=== PATIENT | male | born 1960 | race Caucasian/White ===

== ENCOUNTER → 2023-01-26 | Day surgery (SDC) | payer BC ==
[2023-01-24 14:12] VITALS: BMI 28.5
[~2023-01-26] MED LIST: LACTATED RINGERS 1,000 ML IV ONE; LACTATED RINGERS 1,000 ML IV SCH; LIDOCAINE 2% INJ 20 MG/ML (2 ML VIAL) ONE; PROPOFOL 10 MG/ML 20 ML VIAL IV ONE; SODIUM CHLORIDE 0.9% 500 ML 500 ML IV ONE
[2023-01-26 10:09] VITALS: TEMP 97.4
--- NOTE | 2023-01-26 11:48 | P.PCN ---
Date of Procedure: 01/26/23 Procedure(s) Performed: BRIEF HISTORY: Patient is a 62-year-old pleasant white male scheduled for an elective colonoscopy as a part of screening for colon cancer and family history of colon cancer. His mother and maternal grandmother both were diagnosed with colon cancer in his 60s. PROCEDURE PERFORMED: Colonoscopy with biopsy. PREOPERATIVE DIAGNOSIS: Screening for colon cancer and family history of colon cancer. IV sedation per Anesthesia. PROCEDURE: After informed consent was obtained, the patient, was brought into the endoscopy unit. IV sedation was administered by Anesthesia under continuous monitoring. Digital rectal examination was normal. Initially the Olympus CF-160 flexible video colonoscope was then inserted in the rectum, gradually advanced into the cecum without any difficulty. Careful examination was performed as the scope was gradually being withdrawn. Ileocecal valve and the appendiceal orifice were visualized and appeared normal. Prep was excellent. Mucosa of the cecum, ascending colon, transverse colon, descending colon, appeared normal. The sigmoid: There was a 4 mm polyp removed by cold biopsy. In the rectum there was another 3 mm polyp removed by cold biopsy. Scattered left sided diverticulosis seen. Rest of the sigmoid colon, and rectum appeared normal. Retroflexion was performed in the rectum and no lesions were seen. The patient tolerated the procedure well. IMPRESSION: 3 mm rectal polyp status post cold biopsy 4 mm sigmoid: Polyp status post cold biopsy Scattered sigmoid diverticula RECOMMENDATIONS: Findings of this examination were discussed with the patient well as his family. He was advised to follow with the biopsy results. Recomme nd repeat screening colonoscopy in 5 years because of the family history of colon cancer
[2023-01-26 12:09] VITALS: BP 143/81; PULSE 80; RESP 20
== END ==
LOC: ORWHC2ENDO 09:45
PROVIDERS: ATTEND Internal Medicine Gastroenterology
DX: Z12.11 Encounter for screening for malignant neoplasm of colon (principal); K62.1 Rectal polyp; K57.30 Diverticulosis of large intestine without perforation or abscess without bleeding; K63.5 Polyp of colon; I10 Essential (primary) hypertension; Z80.0 Family history of malignant neoplasm of digestive organs; Z79.899 Other long term (current) drug therapy
CPT/HCPCS: 88305; 45380; J2704; J2001

== ENCOUNTER → 2023-08-09 | Outpatient (CLI) | payer BC ==
--- NOTE | 2023-08-09 16:28 | XR ---
EXAMINATION TYPE: XR lumbosacral spine 5 views DATE OF EXAM: 08/09/2023 Comparison: None Clinical History: 63-year-old male M54.40 Lumbago with sciatica Findings: Degenerative dextroconvex curvature of the lumbar spine. Severe disc/endplate degenerative change tow ards the left at L4-L5. Bridging right lateral endplate spondylosis thoracolumbar junction and upper lumbar spine. Moderate to severe multilevel degenerative disc disease is present. [facility] in the lower t horacic spine. Severe hypertrophic facet arthropathy throughout. Degenerative grade 1 retrolisthesis L2-L3 and L3-L4. Vertebral body heights are preserved. Impression: 1. Moderate to severe degenerative disc disease throughout. 2. Severe hypertrophic facet arthropathy especially mid to lower lumbar spine. Degenerative grade 1 r etrolisthesis L2-L3 and L3-L4. 3. DISH in the lower thoracic and upper lumbar spine.
== END | disposition home or self-care (01) ==
LOC: RADXRMAIN 10:58
PROVIDERS: ATTEND Family Medicine
DX: M43.16 Spondylolisthesis, lumbar region (principal); M47.27 Other spondylosis with radiculopathy, lumbosacral region; M51.27 Other intervertebral disc displacement, lumbosacral region; M48.15 Ankylosing hyperostosis [Forestier], thoracolumbar region
CPT/HCPCS: 72110

== ENCOUNTER → 2024-02-16 | Outpatient (CLI) | payer BC | END | disposition home or self-care (01) | LOC: LABWHC1 10:06 | PROVIDERS: ATTEND Urology | DX: C61 Malignant neoplasm of prostate (principal) | CPT/HCPCS: 36415; 84153 ==

== ENCOUNTER → 2024-09-02 | Outpatient (CLI) | payer BC | END | disposition home or self-care (01) | LOC: LABWHC1 07:56 | PROVIDERS: ATTEND Urology | DX: C61 Malignant neoplasm of prostate (principal) | CPT/HCPCS: 36415; 84153 ==

== ENCOUNTER → 2024-12-16 | Outpatient (CLI) | payer BC ==
[2024-12-16 11:46] LABS: Basophils # (A) 0.03 X 10*3/uL (0.00-0.10); Basophils % (A) 0.6 %; Eosinophils # (A) 0.23 X 10*3/uL (0.04-0.35); Eosinophils % (A) 4.7 %; HCT 43.9 % (39.6-50.0); HGB 15.0 g/dL (13.0-17.0); Immature Grans, Automated 0.40 %; Lymphocytes # (A) 1.52 X 10*3/uL (0.90-5.00); Lymphocytes % (A) 31.3 %; MCH 31.2 pg (27.0-32.0); MCHC 34.2 g/dL (32.0-37.0); MCV 91.3 FL (80.0-97.0); Monocytes # (A) 0.57 X 10*3/uL (0.20-1.00); Monocytes % (A) 11.7 %; NRBC Per 100 WBC 0 X 10*3/uL (0.00-0.01); Neutrophils # (A) 2.49 X 10*3/uL (1.80-7.70); Neutrophils % (A) 51.3 %; Platelet Count 197 X 10*3/uL (140-440); RBC 4.81 X 10*6/uL (4.40-5.60); RDW 12.4 % (11.5-14.5); WBC 4.86 X 10*3/uL (4.50-10.00)
[2024-12-16 11:56] LABS: Anion Gap 13.90 mmol/L (4.00-12.00); BUN/Creat Ratio 10.62 Ratio (12.00-20.00); Blood Urea Nitrogen 8.5 mg/dL (9.0-27.0); Calcium 9.3 mg/dL (8.7-10.3); Carbon Dioxide 23.1 mmol/L (21.6-31.8); Chloride 104 mmol/L (96-109); Glucose 92 mg/dL (70-110); Potassium 4.1 mmol/L (3.5-5.5); Sodium 141 mmol/L (135-145)
== END | disposition home or self-care (01) ==
LOC: LABPAT 07:17
PROVIDERS: ATTEND Urology
DX: Z01.812 Encounter for preprocedural laboratory examination (principal); C61 Malignant neoplasm of prostate
CPT/HCPCS: 80048; 85025

== ENCOUNTER 2024-12-25 09:51 | Day surgery (SDC) | payer BC ==
[2024-12-22 13:56] VITALS: BMI 29.8
--- NOTE | 2024-12-22 17:37 | P.GSHP ---
History of Present Illness H&P Date: 12/22/24 Chief Complaint: Prostate cancer The patient is a 64-year-old white male diagnosed with prostate cancer in May 2023. His PSA level at that time was 5.96. 2 of 12 biopsies showed evidence of prostate cancer (Shikha score 3+4). He opted for active surveillance. Repeat biopsies in May 2024 showed evidence of Shikha 7 adenocarcinoma in 3 of 12 biopsies, with 1 showing [place] 4+3. He was advised to consider treatment but has chosen to continue active surveillance. Recent prostate MRI shows a PI-RADS 3 lesion within the right peripheral zone at the apex. He now comes for MRI fusion biopsies. - Cardiovascular Cardiovascular: Reports high blood pressure Past Medical History Past Medical History: Hypertension Additional Past Medical History / Comment(s): SEASONAL ALLERGIES. ELEVATED PSA History of Any Multi-Drug Resistant Organisms: None Reported Additional Past Surgical History / Comment(s): COLONOSCOPY. TENDON CLIPPED IN ABD R/T GROIN PAIN AND IMPOTENCE (SPOUSE NOT SURE OF NAME). HEMORRHOIDECTOMY Past Anesthesia/Blood Transfusion Reactions: No Reported Reaction Smoking Status: Never smoker - Past Family History Mother Family Medical History: Cancer Additional Family Medical History / Comment(s): COLON Medications and Allergies Home Medications Medication Instructions Recorded Confirmed Type Fexofenadine HCl [Harriett Allergy] 180 mg PO DIRECTED PRN 01/24/23 12/22/24 History Ibuprofen [Motrin Ib] 400 - 600 mg PO DAILY PRN 01/24/23 12/22/24 History amLODIPine [Norvasc] 10 mg PO DAILY 01/24/23 12/22/24 History lisinopriL [Zestril] 10 mg PO DAILY 01/24/23 12/22/24 History Allergies Allergy/AdvReac Type Severity Reaction Status Date / Time No Known Allergies Allergy Verified 12/22/24 13:50 Surgical - Exam - General well developed, well nourished, no distress - Respiratory normal respiratory effort - Genitourinary normal penis with no external lesions, testicles non-tender - Rectum Rectum: normal sphincter tone, no masses, other (prostate moderately enlarged and smooth) - Psychiatric oriented to time, oriented to person, oriented to place, speech is normal, memory intact Assessment and Plan (1) Malignant neoplasm of prostate Status: Acute Code(s): C61 - MALIGNANT NEOPLASM OF PROSTATE SNOMED Code(s): 958073605 Plan: The patient will undergo MRI-Ultrasound fusion transrectal biopsies of the prostate. The procedure has been reviewed in detail with the patient. He has been made aware of potential risks, which include anesthesia, bleeding, and infection. He is also aware that a negative biopsy does not completely rule out prostate cancer.
[2024-12-25 11:09] VITALS: TEMP 98.9
[2024-12-25] MEDS: IV FLUID CONTINUATION 1,000 ML IV ONE (11:16)
[2024-12-25] MEDS: GENTAMICIN 40 MG/ML 2 ML VIAL IM PRN (11:17)
[2024-12-25] MEDS: LACTATED RINGERS 1,000 ML IV SCH (11:20)
[2024-12-25] MEDS ORDERED: fentaNYL (PF) 50 MCG/ML 2 ML AMP ONE (12:28)
[2024-12-25] MEDS ORDERED: PROPOFOL 10 MG/ML 20 ML VIAL IV ONE (12:28)
[2024-12-25] MEDS ORDERED: MIDAZOLAM 2 MG/2 ML VIAL ONE (12:28)
--- NOTE | 2024-12-25 12:57 | P.OP ---
Date of Procedure: 12/25/24 Preoperative Diagnosis: Adenocarcinoma of the prostate Postoperative Diagnosis: Same Procedure(s) Performed: MRI fusion biopsies of the prostate Anesthesia: MAC Surgeon: Mk Jameson Estimated Blood Loss (ml): 5 IV fluids (ml): 300 Pathology: other (Prostate biopsies) Condition: stable Disposition: PACU Indications for Procedure: The patient is a 64-year-old white male diagnosed with prostate cancer in May 2023. His PSA level at that time was 5.96. 2 of 12 biopsies showed evidence of prostate cancer (Shikha score 3+4). He opted for active surveillance. Repeat biopsies in May 2024 showed evidence of Shikha 7 adenocarcinoma in 3 of 12 biopsies, with 1 showing [place] 4+3. He was advised to consider treatment but has chosen to continue active surveillance. Recent prostate MRI shows a PI-RADS 3 lesion within the right peripheral zone at the apex. He now comes for MRI fusion biopsies. Operative Findings: Biopsies obtained from target lesion along with template biopsies. Description of Procedure: The patient was taken to the operating room and placed in the left lateral decubitus position. MERA revealed the prostate to be moderately enlarged with smooth. The [employer] transrectal ultrasound probe was placed intrarectally. It was then placed within the stand of the [employer] MRI/TRUS Fusion for Prostate Biopsy system. The prostate was imaged in both the axial and sagittal planes, revealing a prostate volume of 63 mL. Using the Biopty gun, 3 biopsies were obtained from the target lesion at the right apical peripheral zone. The remaining 12 biopsies of the peripheral zone were obtained utilizing a standard template. Once the procedure was completed, the ultrasound probe was removed. The patient tolerated the procedure well was taken to the recovery room stable condition.
[2024-12-25 13:13] VITALS: BP 124/96; PULSE 82; RESP 14
== END 2024-12-25 13:27 | disposition home or self-care (01) ==
LOC: OR 09:51
PROVIDERS: ATTEND Urology
DX: C61 Malignant neoplasm of prostate (principal); N41.0 Acute prostatitis; I10 Essential (primary) hypertension
CPT/HCPCS: 88344; 88305; 55700; 72195; J2250; J1580; J3010; J2704